=== PATIENT | male | born 1980 | race Two or more races ===

== ENCOUNTER 2024-07-12 18:09 | Emergency (ER) | payer MEDICAID, OTHER ==
[~2024-07-12] VITALS: Ht 160 cm; Wt 70.3 kg
--- NOTE | 2024-07-12 19:21 | ED.PDOC ---
History of Present Illness HPI Comments 43 y/o M, with a Hx of PTCA w/blood thinner use, presents with c/o nose bleed, today. Patient endorses on sudden and unprovoked onset of bleeding emanating from his right nare 40x minutes prior to arrival to ED. Patient comments on additional Hx of Brilinta and 81 mg ASA. He states on no recent injuries, med ication non-compliancy, or other relevant or pertinent information. Patient denies having any headache, lightheadedness, dizziness, vision or speech changes, or other associated symptoms or modifiers at this time. Chief Complaint: Nose Bleed Time Seen by MD: 18:30 Reviewed Notes: Nurses Notes, Medications, Allergies Allergies: Coded Allergies: Acetaminophen (Verified Allergy, Unknown, 07/12/24) Hydrocodone (Verified Allergy, Unknown, 07/12/24) Information Source: Patient Mode of Arrival: Ambulatory Severity: Moderate Timing: Minutes Duration: Since onset Prehospital treatment: None Past Medical History Past Medical History (Other): Brilinta and 81 mg ASA Surgical History: PTCA Family History Family History: Unknown Social History Smoker: Non-Smoker Alcohol: Denies ETOH Use Drugs: Denies Drug Use Lives In: Home EENTM: reports: nose bleeding All Other Systems: Reviewed and Negative (negative unless otherwise stated above or in HPI) Physical Exam General Appearance: Mild Distress, Normal HEENT: Pharynx Normal, TMs Normal, Other (right anterior active bleeding ) Neck: Full Range of Motion, Non-Tender, Normal, Normal Inspection Respiratory: Chest Non-Tender, Lungs Clear, No Accessory Muscle Use, No Respiratory Distress, Normal Breath Sounds Cardiovascular: No Edema, No JVD, No Murmur, No Gallop, Normal Peripheral Pulses, Regular Rate/Rhythm Breast Exam: Deferred Gastrointestinal: No Organomegaly, Non Tender, No Pulsatile Mass, Normal Bowel Sounds, Soft Genitalia: Deferred Pelvic: Deferred Rectal: Deferred Extremities: No calf tenderness, Normal capillary refill, Normal inspection, Normal range of motion, Non-tender, No pedal edema Musculoskeletal : Apperance: Normal Neurologic: Alert, brass sorter II-XII nml as Tested, No Motor Deficits, Normal Affect, Normal Mood, No Sensory Deficits Cerebellar Function: Normal Reflexes: Normal Skin: Dry, Normal Color, Warm Lymphatic: No Adenopathy Was a procedure done? Was a procedure done?: No Nasal Cautery and Pack Indicaton: Anterior epitaxis Silver nitrate: Right Hemostasis: Was not obtained Location of packing: Right Packing: Other (surgicel) Informed consent obtained: Yes Risks/benefits/alt described: Yes Differential Dx Considerations may include: epistaxis X-Ray, Labs, Meds, VS Vital Signs Date Time Temp Pulse Resp B/P (MAP) Pulse Ox O2 Delivery O2 Flow Rate FiO2 07/12/24 18:25 98.0 89 19 129/86 (100) 99 Surgicel was placed in the right nostril with stopped the nose bleeding Time of 1ST Reevaluation: 19:00 Reevaluation 1ST: Unchanged Patient Education/Counseling: Diagnosis, Treatment Family Education/Counseling: No Family Present Departure 1 Departure Time of Disposition: 20:20 Impression: Primary Impression: Epistaxis Disposition: HOME / SELF CARE / HOMELESS Condition: Stable Additional Instructions: Reassessed patient, vital signs stable. Denies any new symptoms. Patient is able to tolerate PO and ambulate/be mobile at their baseline without concern. Risks and benefits of all medications given or prescribed, if any, discussed. All lab work, imaging and diagnostic studies were reviewed by me. The patient was counseled extensively on my clinical impression, diagnosis, expected course of the disease, and plan, including their follow-up care. Will discharge patient. Patient instructed to follow up with Primary Care Physician within 24-48 hours. Strict return precautions given for further exacerbation of symptoms or for new symptoms. The patient was given the opportunity to ask questions and all questions were answered by myself and the nursing/tech staff. Patient is in agreement with the care plan. The patient verbally expressed understanding of the discharge instructions, including the reasons to return to the Emergency Department. Discharged With: Self Critical Care Note Critical Care Time?: No Stability Stability form required: No Heart Score Heart Score: Heart Score Response (Comments) Value History N/A 0 EKG N/A 0 Age N/A 0 Risk Factors N/A 0 Troponin N/A 0 Total 0 I personally scribed for LUISA NELSON MD ([email or web address]) on 07/12/24 at 19:21. Electronically submitted by Robert Villela ([email or web address]). LUISA NELSON MD Jul 12, 2024 19:21
[2024-07-12 20:45] VITALS: BP 106/70; PULSE 85; RESP 18; O2SAT 100
== END 2024-07-12 20:40 | disposition home or self-care (01) ==
LOC: ER 18:14
DX: R04.0 Epistaxis (principal); Z98.890 Other specified postprocedural states; Z88.6 Allergy status to analgesic agent
CPT/HCPCS: 30901